=== PATIENT | male | born 1995 | race Two or more races ===

== ENCOUNTER 2018-06-16 19:54 | Emergency (ER) | payer SELFPAY ==
[~2018-06-16] VITALS: Ht 182.9 cm; Wt 68.0 kg
[2018-06-16] MEDS ORDERED: IV NS 0.9% 1,000 ML BAG IV ONE (20:00)
--- NOTE | 2018-06-16 20:00 | NUR ---
PT BIB RA. COMP OF "FEELING WEAK AND SOB". NO ACUTE DISTRESS AT THIS TIME. PT STATING 'I HAVE FREQUENT SICKLE CELL EPISODES". PT AOX4. AMBULATORY W.ASSISTANCE. AWAITING MD SAMAYOA.
[2018-06-16 20:42] LABS: HEMATOCRIT 29 % (39-51); HEMOGLOBIN 9.8 g/dL (13.5-17.5); LYMPHOCYTES # (AUTO) 0.4 /CMM (0.8-4.8); LYMPHOCYTES % (AUTO) 5.3 % (20.0-44.0); MEAN CORPUSCULAR HGB CONC 34 g/dl (31.0-36.0); MEAN CORPUSCULAR VOLUME 75 fL (80-96); MONOCYTES # (AUTO) 0.1 /CMM (0.1-1.30); MONOCYTES % (AUTO) 2.1 % (2.0-12.0); NEUTROPHILS # (AUTO) 6.1 /CMM (1.8-8.9); NEUTROPHILS % (AUTO) 92.6 % (43.0-81.0); PLATELET COUNT (AUTO) 562 /CMM (150-450); RED BLOOD CELL COUNT(AUTO) 3.85 MIL/uL (4.5-6.0); WHITE BLOOD COUNT (AUTO) 6.6 K/uL (4.3-11.0)
[2018-06-16] MEDS ORDERED: HYDROMORPHONE 1 MG/1 ML DISP.SYRIN ONE (20:49)
[2018-06-16] MEDS ORDERED: diphenhydrAMINE HCL 50 MG/ML VIAL ONE (20:49)
[2018-06-16 20:50] LABS: CALCIUM, SERUM 9.7 mg/dL (8.5-10.1); CARBON DIOXIDE 29 mmol/L (21-32); CHLORIDE 101 mmol/L (98-107); CREATININE 0.7 mg/dL (0.6-1.3); GLUCOSE 133 mg/dL (74-106); POTASSIUM 4.2 mmol/L (3.5-5.1); SODIUM SERUM 138 mmol/L (136-145); UREA NITROGEN, BLOOD 7 mg/dL (7-18)
[2018-06-16 20:57] LABS: ALANINE AMINOTRANSFERASE 31 U/L (12-78); ALKALINE PHOSPHATASE 95 U/L (46-116); ASPARTATE AMINOTRANSFERASE 46 U/L (15-37); BILIRUBIN,DIRECT 0.4 mg/dL (0.0-0.2); BILIRUBIN,TOTAL 1.7 mg/dL (0.2-1.0); TOTAL PROTEIN, SERUM 8.3 g/dL (6.4-8.2)
[2018-06-16] MEDS ORDERED: diphenhydrAMINE HCL 50 MG/ML VIAL IV ONE (21:00)
[2018-06-16] MEDS ORDERED: HYDROMORPHONE 1 MG/1 ML DISP.SYRIN IV ONE (21:00)
--- NOTE | 2018-06-16 23:15 | NUR ---
Patient is resting comfortably in bed with eyes closed. Easily aroused. VSS
[2018-06-17 01:09] VITALS: BP 128/76
== END 2018-06-17 01:09 | disposition home or self-care (01) ==
LOC: ER 19:56
DX: D57.00 Hb-SS disease with crisis, unspecified (principal); R00.0 Tachycardia, unspecified; F12.10 Cannabis abuse, uncomplicated; Z59.0 Homelessness; Z98.890 Other specified postprocedural states; Z88.5 Allergy status to narcotic agent
CPT/HCPCS: 36415; 71045-TC; 80048-TC; 80076-TC; 84484-TC; 85025-TC; 85045-TC; A4606; J1170; J1200; J7030; Z7610